=== PATIENT | female | born 1960 | race Caucasian/White ===

== ENCOUNTER 2017-02-23 03:27 | Emergency (ER) | payer SELFPAY ==
[~2017-02-23] VITALS: Ht 157.5 cm; Wt 59.1 kg
[~2017-02-23 03:27] MED LIST: CALC-78 PO; CYCL10TA9 PO; LOSA100T3 PO; MARIJUANA; MULT-56 PO; NORE1TAB PO; TRIA1TAB2 PO
[2017-02-23 03:29] VITALS: BP 161/83; RESP 18; O2SAT 99
--- NOTE | 2017-02-23 03:46 | ED.REPORT ---
HPI-Sore Throat ONLY HPI/PE done Feb 23, 2017 ED Provider: Mina Lu MD The pt is a 56 y/o female presenting to the ED due to an esophageal obstruction. She describes eating a piece of steak, and has attempted to drink sips of water w/o relief. The pt is able to speak in full sentences w/ no difficulty. Denies SOB. Nursing Notes Stated Complaint: FOREIGN BODY IN THROAT Chief Complaint: Esophageal obstruction Nursing Notes Reviewed: Yes Allergies: Coded Allergies: No Known Allergies (Verified Allergy, Unknown, 02/23/17) Scheduled ([Marijuana]) NEEDED Calcium Carbonate/Vitamin D3 (Calcium 500 + Vit D Caplet) 1 Each Tablet 1 EACH PO NEED SIG Losartan Potassium (Cozaar) 100 Mg Tablet 100 MG PO DAILY Multivitamin (Daily Vitamin) 1 Each Tablet 1 EACH PO DAILY Noreth A-Et Estra/Fe Fumarate (Estrostep Fe-28 Tablet) 1 Each Tablet 1 EACH PO DAILY Triamterene/Hydrochlorothiazid (Maxzide 37.5 mg-25 mg Tablet) 1 Each Tablet 1 EACH PO DAILY Scheduled PRN Cyclobenzaprine (Cyclobenzaprine) 10 Mg Tablet 5-10 MG PO Q8 PRN PRN For Spasm General Time Seen by MD: 03:45 Chief Complaint Other (Esophageal obstruction) Hx Obtained From: Patient Arrived By: Walk-in Onset Occurred: Just prior to arrival Symptom Duration: Since onset Recent Healthcare: No recent doctor visit, No recent hospitalization Similar Sx Previous: Yes Past Medical History Past Medical History None reported Past Surgical History None reported Smoking History Unknown if Ever Smoker Social History Other Social History: Good social support Ambulatory Status Independent Review of Systems Food stuck in throat; Respiratory: Denies: Shortness of breath Neurologic: Denies: Slurred speech, Unable to speak Complete sys rev & neg: except as marked. Physical Exam Initial Vital Signs Vital Signs (First) Date Time Temp Pulse Resp B/P Pulse Ox O2 Delivery O2 Flow Rate FiO2 02/23/17 03:29 36.8 82 18 161/83 99 Room Air Initial VS: Reviewed, Vital signs normal Head / Eyes: Atraumatic, Normocephalic, PERRL Respiratory: Breath sounds normal, Clear to auscultation, No respiratory distress Cardiovascular: Regular rate & rhythm, Heart sounds normal, Intact distal pulses Abdomen / GI: Soft, Non-tender, No guarding, No rebound, No distention Extremities: Vascular intact, Neuro intact, No swelling, No tenderness Skin: Warm, Dry, No cyanosis Neurologic: Alert, Oriented, Nonfocal Psychiatric: Mood/affect normal, Behavior normal, Normal thought content General/Constitutional: Awake, Alert ENT: Atraumatic, Airway patent, Mucous membranes moist Neck: Atraumatic, Supple, Full range of motion Re-Eval/Medical Decision Med Decision/Clinical Course 56-year-old who presents with a steak bolus esophageal foreign body. She has had some difficulty swallowing the past but never actually obstructed. She was given the "Pepsi challenge" with resolution of the obstruction. We discussed prevention in further evaluation. Re-Evaluation/Progress : Time of Eval: 04:03 Re-Evaluation/Progress Note: Pt rechecked. F/U instructions and RTER warnings given. All questions addressed. Counseled Regarding: Diagnosis, Need for follow-up, When/why to return to ED Discharge & Departure Primary Impression: Impacted esophageal foreign body Encounter type: initial encounter Qualified Code: T18.108A - Unspecified foreign body in esophagus causing other injury, initial encounter Disposition: Home Discharge Condition All VS Reviewed: Yes Condition: Stable Patient Instructions: Esophageal Foreign Body (ED) Additional Instructions: It appears that you probably have a stricture or narrowing of the distal esophagus. Be very careful about cutting small and chewing well. Follow-up with your regular doctor if you have continued problems. You may need a GI referral and dilation of the distal esophagus. Referrals: Pati Willoughby MD (PCP) Scribe Attestation Portions of this note were transcribed by Otis Moody. I, Dr. Lu personally performed the history, physical exam and medical decision-making; I reviewed and confirmed the accuracy of the information in the transcribed note. copies to: Pati Willoughby MD, Mina Lea MD Feb 23, 2017 03:46 Otis Moody Feb 23, 2017 03:54
[2017-02-23 04:23] VITALS: BP 161/83; PULSE 82; RESP 18; O2SAT 99
== END 2017-02-23 04:20 | disposition home or self-care (01) ==
LOC: SED 03:27
DX: T18.128A Food in esophagus causing other injury, initial encounter (principal); X58.XXXA Exposure to other specified factors, initial encounter; Y93.89 Activity, other specified; Y92.9 Unspecified place or not applicable; Y99.8 Other external cause status